=== PATIENT | female | born 1995 | race Caucasian/White ===

== ENCOUNTER → 2017-07-06 | Outpatient (CLI) | payer OTHER ==
[~2017-07-06] VITALS: Ht 157.5 cm; Wt 72.6 kg
[~2017-07-06] MED LIST: PRENATAL TABLE1 EAC3 PO
[2017-07-06 09:40] VITALS: BP 159/57
== END | disposition home or self-care (01) ==
LOC: IVINF 08:59
DX: Z31.82 Encounter for Rh incompatibility status (principal); Z3A.00 Weeks of gestation of pregnancy not specified
CPT/HCPCS: 96372; J2790

== ENCOUNTER 2017-08-25 01:15 | Inpatient (IN) | payer OTHER ==
[~2017-08-25] VITALS: Ht 157.5 cm; Wt 77.1 kg
[2017-08-25] VITALS (20 sets, daily range): BP systolic 139–182; BP diastolic 79–122
[2017-08-25 02:38] LABS: BASOPHIL (%) 0.1 % (0-1); EOSINOPHIL (%) 0 % (0-5); HEMATOCRIT 33.3 % (36.0-46.0); HEMOGLOBIN 11.9 G/DL (11.9-15.5); IMMATURE GRANULOCYTE (%) 0.5 % (0.0-0.7); LYMPHOCYTE (%) 12.3 % (15-42); LYMPHOCYTE COUNT 1.8 K/uL (1.0-2.8); MCH 30.4 PG (29.0-34.0); MCHC 35.7 G/DL (30.0-36.0); MCV 84.9 FL (83-99); MONOCYTE (%) 3.7 % (3-12); MONOCYTE COUNT 0.5 K/uL (0-0.8); NEUTROPHIL (%) 83.4 % (45-76); NEUTROPHIL COUNT 12.3 K/uL (1.8-6.4); PLATELET COUNT 244 K/uL (156-360); RBC DIS.WIDTH-CV 12.7 % (11.8-14.6); RBC DIS.WIDTH-SD 38.3 % (39-53); RED BLOOD COUNT 3.92 M/uL (3.80-5.20); WHITE BLOOD COUNT 14.8 K/uL (4.1-10.2)
[2017-08-25 02:49] LABS: ALBUMIN 3.4 g/dL (3.2-4.8); CHLORIDE 104 mEq/L (99-109); POTASSIUM 3.5 mEq/L (3.7-5.4); SODIUM 136 mEq/L (136-147)
[2017-08-25 02:52] LABS: GLUCOSE 127 mg/dL (70-99); TOTAL PROTEIN 6.2 g/dL (6.4-8.3)
[2017-08-25 02:54] LABS: TOTAL BILIRUBIN 0.3 mg/dL (0.0-1.0)
[2017-08-25 02:55] LABS: ALKALINE PHOSPHATASE 134 IU/L (3-129); CREATININE 0.7 mg/dL (0.6-1.3); GFR ESTIMATE (CALCULATED) > 59 mL/min/
[2017-08-25 02:56] LABS: UREA NITROGEN (BUN) 7 mg/dL (9-23)
[2017-08-25 02:57] LABS: AST (GOT) 13 IU/L (2-34)
[2017-08-25 02:58] LABS: ALT (GPT) 10 IU/L (3-49)
[2017-08-25 03:03] LABS: GROUP B STREP NEGATIVE (NEGATIVE)
[2017-08-25 03:39] LABS: SOURCE URINE
[2017-08-25] MEDS ORDERED: MOTRIN800 MG PO (04:03)
[2017-08-25 04:13] LABS: BENZODIAZEPINES, URINE SCREEN Negative (200 ng/mL)
[2017-08-25 08:27] LABS: UR CREATININE CONCENTRATION 172.6 MG/DL
[2017-08-26] VITALS (7 sets, daily range): BP systolic 128–164; BP diastolic 78–112
[2017-08-26 06:43] LABS: BASOPHIL (%) 0.2 % (0-1); EOSINOPHIL (%) 0.6 % (0-5); EOSINOPHIL COUNT 0.1 K/uL (0-0.3); HEMATOCRIT 28.2 % (36.0-46.0); IMMATURE GRANULOCYTE (%) 0.4 % (0.0-0.7); LYMPHOCYTE (%) 22.3 % (15-42); LYMPHOCYTE COUNT 2.3 K/uL (1.0-2.8); MCH 30.6 PG (29.0-34.0); MCHC 34.8 G/DL (30.0-36.0); MCV 88.1 FL (83-99); MONOCYTE (%) 7.7 % (3-12); MONOCYTE COUNT 0.8 K/uL (0-0.8); NEUTROPHIL (%) 68.8 % (45-76); PLATELET COUNT 178 K/uL (156-360); RBC DIS.WIDTH-CV 13.3 % (11.8-14.6); RBC DIS.WIDTH-SD 42.5 % (39-53); WHITE BLOOD COUNT 10.2 K/uL (4.1-10.2)
[2017-08-26 06:45] LABS: HEMOGLOBIN 9.8 G/DL (11.9-15.5)
[2017-08-26] MEDS ORDERED: LABETALOL HCL200 MG PO (08:16)
[2017-08-26 11:54] LABS: CHLAMYDIA TRACHOMATIS NEGATIVE; NEISSERIA GONORRHOEAE NEGATIVE
[2017-08-27] VITALS: BP 130/80
[2017-08-27 03:45] VITALS: BP 136/88
[2017-08-27 07:08] VITALS: BP 135/93
== END 2017-08-27 13:10 | disposition home or self-care (01) | DRG 775 ==
LOC: LDRP-OP 01:15 → 2WEST 01:16
PROVIDERS: Nurse Practitioner
DX: O60.14X1 Preterm labor third trimester with preterm delivery third trimester, fetus 1 (principal); O14.04 Mild to moderate pre-eclampsia, complicating childbirth; K21.9 Gastro-esophageal reflux disease without esophagitis; Z37.0 Single live birth; Z3A.35 35 weeks gestation of pregnancy; O42.013 Preterm premature rupture of membranes, onset of labor within 24 hours of rupture, third trimester; O99.62 Diseases of the digestive system complicating childbirth; O70.0 First degree perineal laceration during delivery; O12.04 Gestational edema, complicating childbirth; O99.344 Other mental disorders complicating childbirth; F41.9 Anxiety disorder, unspecified; O13.4 Gestational [pregnancy-induced] hypertension without significant proteinuria, complicating childbirth; Z87.891 Personal history of nicotine dependence; Z88.0 Allergy status to penicillin
CPT/HCPCS: 80053; 80306 90; 82570; 83030; 84156; 85025; 86850; 86870; 86900; 86901; 86905; 87491; 87591; 87653; J2790; J3370